=== PATIENT | male | born 1955 | race Caucasian/White ===

== ENCOUNTER 2018-05-23 18:47 | Emergency (ER) | payer OTHER ==
[~2018-05-23] VITALS: Ht 172.7 cm; Wt 93.4 kg
[2018-05-23 18:53] VITALS: Ht 172.7 cm; Wt 93.4 kg
[2018-05-23 20:48] VITALS: BP 130/82
== END 2018-05-23 20:49 | disposition home or self-care (01) ==
LOC: ED 18:47
DX: T15.02XA Foreign body in cornea, left eye, initial encounter (principal); W45.8XXA Other foreign body or object entering through skin, initial encounter; Y93.89 Activity, other specified; Y92.89 Other specified places as the place of occurrence of the external cause; Y99.0 Civilian activity done for income or pay
CPT/HCPCS: 90715